=== PATIENT | male | born 1970 | race Caucasian/White ===

== ENCOUNTER 2016-06-28 10:53 | Outpatient (CLI) | payer OTHER | END 2016-06-28 10:54 | disposition home or self-care (01) | DX: G47.30 Sleep apnea, unspecified (principal); G47.8 Other sleep disorders; G47.10 Hypersomnia, unspecified; R06.83 Snoring ==

== ENCOUNTER 2016-07-28 21:49 | Outpatient (CLI) | payer OTHER | END 2016-07-28 21:50 | disposition home or self-care (01) | LOC: SC 21:49 | PROVIDERS: ATTEND Internal Medicine Pulmonary Disease | DX: G47.61 Periodic limb movement disorder (principal); R00.1 Bradycardia, unspecified | CPT/HCPCS: 95810 ==

== ENCOUNTER 2016-08-23 10:45 | Outpatient (CLI) | payer OTHER | END 2016-08-23 10:46 | disposition home or self-care (01) | LOC: SC 10:45 | PROVIDERS: ATTEND Nurse Practitioner Family | DX: G47.61 Periodic limb movement disorder (principal); R00.1 Bradycardia, unspecified; R53.83 Other fatigue; R06.83 Snoring | CPT/HCPCS: 99212; 99214 ==